=== PATIENT | female | born 1965 | race Caucasian/White ===

== ENCOUNTER → 2017-12-14 | Outpatient (CLI) | payer MEDICARE, BC | END | disposition home or self-care (01) | LOC: RAD 10:58 | DX: S93.601A Unspecified sprain of right foot, initial encounter (principal) | CPT/HCPCS: 73630 ==

== ENCOUNTER 2018-03-29 16:39 | Inpatient (IN) | payer MEDICARE, BC ==
[2018-03-29] MEDS: SOD CHLORIDE 0.9% 1,000 ML IV ×2 (17:29→22:51)
[2018-03-29 17:32] LABS: ADD MAN DIFF? NO
[2018-03-29 17:39] LABS: BASOPHILS % 0.1 % (0.0-2.0); EOSINOPHILS % 0.1 % (0.0-7.0); HEMATOCRIT 29.1 % (37.0-47.0); HEMOGLOBIN 9.6 g/dl (12.0-16.0); LYMPHOCYTES # 1.3 10^3/ul (0.8-2.9); MEAN CORPUSCULAR HEMOGLOBIN 29.4 pg (29.0-33.0); MEAN CORPUSCULAR VOLUME 89.3 fl (82.0-101.0); MEAN PLATELET VOLUME 11.3 fl (7.4-10.4); MONOCYTE # 1.4 10^3/ul (0.3-0.9); NEUTROPHIL # 11.2 10^3/ul (1.6-7.5); NEUTROPHILS % 79.9 % (39.0-77.0); PLATELET COUNT 177 10^3/UL (140-415); RED BLOOD COUNT 3.26 10^6/ul (4.20-5.40); RED CELL DISTRIBUTION WIDTH 15.3 % (11.5-14.5)
[2018-03-29] MEDS: SODIUM CHLORIDE 0.9% 1L BAG IV* (17:56)
[2018-03-29 17:59] LABS: INR 0.96; PROTIME 12.9 Sec (11.9-14.9)
[2018-03-29 18:05] LABS: ALANINE AMINOTRANSFERASE 30 IU/L (13-69); ALBUMIN 3.5 g/dl (3.3-4.9); ALBUMIN/GLOBULIN RATIO 0.89; ALKALINE PHOSPHATASE 86 IU/L (42-121); ANION GAP 18 (8-16); ASPARTATE AMINO TRANSFERASE 20 IU/L (15-46); BILIRUBIN,INDIRECT 0.1 mg/dl (0-1.1); BILIRUBIN,TOTAL 0.1 mg/dl (0.2-1.3); BLOOD UREA NITROGEN 41 mg/dl (7-20); CALCIUM 9.1 mg/dl (8.4-10.2); CARBON DIOXIDE 23 mmol/L (21-31); CHLORIDE 97 mmol/L (97-110); CREATININE 1.88 mg/dl (0.44-1.00); GLUCOSE 284 mg/dl (70-220); POTASSIUM 4.5 mmol/L (3.5-5.1); SODIUM 133 mmol/L (135-144); TOTAL PROTEIN 7.4 g/dl (6.1-8.1)
[2018-03-29 18:06] LABS: LACTIC ACID 2.3 mmol/L (0.5-2.0)
[2018-03-29 18:16] LABS: B-TYPE NATRIURETIC PEPTIDE 504 PG/ML (0-125); TROPONIN-I < 0.012 ng/ml (0.000-0.120)
[2018-03-29] MEDS: CEFTRIAXONE 1 GM/50 ML (PMX) 50 ML IVPB (18:18)
[2018-03-29 19:01] LABS: LACTIC ACID 2.4 mmol/L (0.5-2.0)
[2018-03-29] MEDS ORDERED: ACETAMINOPHEN 325 MG TAB PO (20:00)
[2018-03-29] MEDS ORDERED: ONDANSETRON 4 MG INJ IV (20:00)
[2018-03-29 20:08] LABS: ADD UMIC YES; UR ASCORBIC ACID NEGATIVE (NEGATIVE); UR BACTERIA FEW /HPF (NONE SEEN); UR BILIRUBIN (Dip) NEGATIVE (NEGATIVE); UR BLOOD (Dip) NEGATIVE (NEGATIVE); UR CLARITY CLEAR (CLEAR); UR COLOR YELLOW (YELLOW); UR GLUCOSE (Dip) NEGATIVE (NEGATIVE); UR KETONES (Dip) TRACE mg/dL (NEGATIVE); UR LEUKOCYTE ESTERASE (Dip) TRACE Leu/ul (NEGATIVE); UR NITRITE (Dip) NEGATIVE (NEGATIVE); UR RBC 1 /HPF (0-5); UR SPECIFIC GRAVITY (Dip) 1.011 (1.003-1.030); UR TOTAL PROTEIN (Dip) NEGATIVE (NEGATIVE); UR UROBILINOGEN (Dip) NEGATIVE (NEGATIVE); UR WBC 9 /HPF (0-5)
[2018-03-29 21:07] LABS: LACTIC ACID 1.4 mmol/L (0.5-2.0)
[2018-03-29] MEDS ORDERED: NON-FORMULARY/PATIENT OWN MED (Omeprazole* 20 MG) PO (22:30)
[2018-03-29] MEDS: INSULIN ASPART [NOVOLOG] 3 ML PEN SC (22:50)
[2018-03-29] MEDS ORDERED: GLUCOSE GEL 15 GRAM TUBE BUCCAL (23:00)
[2018-03-29] MEDS ORDERED: GLUCOSE GEL 15 GRAM TUBE PO ×2 (23:00)
[2018-03-29] MEDS ORDERED: DEXTROSE 50% 50 ML SYRINGE IV ×2 (23:00)
[2018-03-29] MEDS ORDERED: GLUCAGON 1 MG INJ IM (23:00)
[2018-03-30] MEDS: ACCU-CHEK XX (02:00)
[2018-03-30 05:43] LABS: ADD MAN DIFF? NO
[2018-03-30] MEDS: PANTOPRAZOLE (EC) 40 MG TAB PO (05:44)
[2018-03-30 05:54] LABS: BASOPHILS % 0.2 % (0.0-2.0); EOSINOPHILS # 0.1 10^3/ul (0.0-0.5); EOSINOPHILS % 0.5 % (0.0-7.0); HEMATOCRIT 27.2 % (37.0-47.0); HEMOGLOBIN 8.8 g/dl (12.0-16.0); LYMPHOCYTES # 1.2 10^3/ul (0.8-2.9); LYMPHOCYTES % 12.5 % (15.0-51.0); MEAN CORPUSCULAR HEMOGLOBIN 29.2 pg (29.0-33.0); MEAN CORPUSCULAR HGB CONC 32.4 g/dl (32.0-37.0); MEAN CORPUSCULAR VOLUME 90.4 fl (82.0-101.0); MEAN PLATELET VOLUME 10.9 fl (7.4-10.4); MONOCYTE # 1.3 10^3/ul (0.3-0.9); MONOCYTES % 12.9 % (0.0-11.0); NEUTROPHIL # 7.1 10^3/ul (1.6-7.5); PLATELET COUNT 168 10^3/UL (140-415); RED BLOOD COUNT 3.01 10^6/ul (4.20-5.40); RED CELL DISTRIBUTION WIDTH 15.8 % (11.5-14.5)
[2018-03-30 05:54] LABS: WHITE BLOOD COUNT 9.7 10^3/ul (4.8-10.8)
[2018-03-30 06:28] LABS: ANION GAP 12 (8-16); BLOOD UREA NITROGEN 38 mg/dl (7-20); CALCIUM 8.7 mg/dl (8.4-10.2); CARBON DIOXIDE 26 mmol/L (21-31); CHLORIDE 108 mmol/L (97-110); CREATININE 1.66 mg/dl (0.44-1.00); GLUCOSE 161 mg/dl (70-220); POTASSIUM 4.5 mmol/L (3.5-5.1); SODIUM 141 mmol/L (135-144)
[2018-03-30] MEDS ORDERED: INSULIN ASPART [NOVOLOG] 3 ML PEN SC (08:00)
[2018-03-30] MEDS: LINAGLIPTIN 5 MG TABLET PO (08:07)
[2018-03-30] MEDS: INSULIN ASPART [NOVOLOG] 3 ML PEN SC ×7 (08:08→21:00)
[2018-03-30] MEDS: HYDROCHLOROTHIAZIDE 12.5 MG CAP PO (08:47)
[2018-03-30] MEDS: MELOXICAM 15 MG TAB PO (08:47)
[2018-03-30] MEDS: PREGABALIN 75 MG CAP PO ×2 (08:47→21:00)
[2018-03-30] MEDS: BUPROPION (XL) 150 MG TAB PO (08:48)
[2018-03-30] MEDS: ACETAMINOPHEN 325 MG TAB PO (08:48)
[2018-03-30] MEDS: ENOXAPARIN 30 MG/0.3 ML SYG SC (08:51)
[2018-03-30] MEDS ORDERED: NON-FORMULARY/PATIENT OWN MED (Linagliptin (Tradjenta) 5 MG) PO (09:00)
[2018-03-30] MEDS: SOD CHLORIDE 0.9% 1,000 ML IV (12:35)
[2018-03-30] MEDS: CEFTRIAXONE 1 GM/50 ML (PMX) 50 ML IVPB (18:09)
[2018-03-30 18:10] LABS: TROPONIN-I < 0.012 ng/ml (0.000-0.120)
[2018-03-30] MEDS: DIVALPROEX (EC) 500 MG TAB PO (21:00)
[2018-03-30] MEDS ORDERED: DIVALPROEX SODIUM 1000 MG PO (21:00)
[2018-03-30] MEDS: INSULIN DETEMIR [LEVEMIR] (100 UNITS/ML) SYG SC (21:36)
[2018-03-31] MEDS: ACCU-CHEK XX (01:04)
[2018-03-31] MEDS: SOD CHLORIDE 0.9% 1,000 ML IV ×2 (01:04→18:00)
[2018-03-31 01:39] LABS: TROPONIN-I < 0.012 ng/ml (0.000-0.120)
[2018-03-31 06:15] LABS: ADD MAN DIFF? NO
[2018-03-31 06:23] LABS: WHITE BLOOD COUNT 6.8 10^3/ul (4.8-10.8)
[2018-03-31 06:23] LABS: BASOPHILS % 0.4 % (0.0-2.0); EOSINOPHILS % 0.6 % (0.0-7.0); HEMOGLOBIN 8.8 g/dl (12.0-16.0); LYMPHOCYTES # 1.4 10^3/ul (0.8-2.9); LYMPHOCYTES % 20.7 % (15.0-51.0); MEAN CORPUSCULAR HEMOGLOBIN 28.9 pg (29.0-33.0); MEAN CORPUSCULAR HGB CONC 32.6 g/dl (32.0-37.0); MEAN CORPUSCULAR VOLUME 88.5 fl (82.0-101.0); MEAN PLATELET VOLUME 10.8 fl (7.4-10.4); MONOCYTE # 0.8 10^3/ul (0.3-0.9); MONOCYTES % 12.2 % (0.0-11.0); NEUTROPHIL # 4.3 10^3/ul (1.6-7.5); NEUTROPHILS % 63.2 % (39.0-77.0); PLATELET COUNT 190 10^3/UL (140-415); RED BLOOD COUNT 3.05 10^6/ul (4.20-5.40); RED CELL DISTRIBUTION WIDTH 16.1 % (11.5-14.5)
[2018-03-31 06:41] LABS: HEMOGLOBIN A1C 9.5 % (0-5.9)
[2018-03-31 06:45] LABS: ANION GAP 14 (8-16); BLOOD UREA NITROGEN 28 mg/dl (7-20); CALCIUM 8.7 mg/dl (8.4-10.2); CARBON DIOXIDE 26 mmol/L (21-31); CHLORIDE 107 mmol/L (97-110); CREATININE 1.36 mg/dl (0.44-1.00); GLUCOSE 216 mg/dl (70-220); POTASSIUM 3.9 mmol/L (3.5-5.1); SODIUM 143 mmol/L (135-144)
[2018-03-31] MEDS: PANTOPRAZOLE (EC) 40 MG TAB PO (06:47)
[2018-03-31 06:51] LABS: TROPONIN-I < 0.012 ng/ml (0.000-0.120)
[2018-03-31] MEDS: INSULIN ASPART [NOVOLOG] 3 ML PEN SC ×7 (07:56→21:02)
[2018-03-31] MEDS: HYDROCHLOROTHIAZIDE 12.5 MG CAP PO (08:43)
[2018-03-31] MEDS: BUPROPION (XL) 150 MG TAB PO (08:43)
[2018-03-31] MEDS: PREGABALIN 75 MG CAP PO ×2 (08:43→21:08)
[2018-03-31] MEDS: MELOXICAM 15 MG TAB PO (08:43)
[2018-03-31] MEDS: LINAGLIPTIN 5 MG TABLET PO (08:43)
[2018-03-31] MEDS: ENOXAPARIN 30 MG/0.3 ML SYG SC (08:47)
[2018-03-31] MEDS: CEFTRIAXONE 1 GM/50 ML (PMX) 50 ML IVPB (18:00)
[2018-03-31] MEDS: DIVALPROEX (EC) 500 MG TAB PO (20:57)
[2018-03-31] MEDS: INSULIN DETEMIR [LEVEMIR] (100 UNITS/ML) SYG SC (21:02)
[2018-04-01] MEDS: hydrALAzine 20 MG INJ IV (00:21)
[2018-04-01] MEDS: ACCU-CHEK XX (02:00)
[2018-04-01] MEDS: PANTOPRAZOLE (EC) 40 MG TAB PO (06:00)
[2018-04-01] MEDS: SOD CHLORIDE 0.9% 1,000 ML IV ×3 (06:01→22:47)
[2018-04-01] MEDS: INSULIN ASPART [NOVOLOG] 3 ML PEN SC ×8 (07:58→21:28)
[2018-04-01] MEDS: BUPROPION (XL) 150 MG TAB PO (08:50)
[2018-04-01] MEDS: PREGABALIN 75 MG CAP PO ×2 (08:50→21:23)
[2018-04-01] MEDS: MELOXICAM 15 MG TAB PO (08:50)
[2018-04-01] MEDS: HYDROCHLOROTHIAZIDE 12.5 MG CAP PO (08:50)
[2018-04-01] MEDS: LINAGLIPTIN 5 MG TABLET PO (08:51)
[2018-04-01] MEDS: ENOXAPARIN 30 MG/0.3 ML SYG SC (09:01)
[2018-04-01] MEDS: CEFTRIAXONE 1 GM/50 ML (PMX) 50 ML IVPB (18:23)
[2018-04-01] MEDS: DIVALPROEX (EC) 500 MG TAB PO (21:23)
[2018-04-01] MEDS: INSULIN DETEMIR [LEVEMIR] (100 UNITS/ML) SYG SC (21:28)
[2018-04-02] MEDS: ACCU-CHEK XX (01:56)
[2018-04-02] MEDS: PANTOPRAZOLE (EC) 40 MG TAB PO (05:23)
[2018-04-02] MEDS: INSULIN ASPART [NOVOLOG] 3 ML PEN SC ×7 (08:03→20:21)
[2018-04-02] MEDS: HYDROCHLOROTHIAZIDE 12.5 MG CAP PO (08:37)
[2018-04-02] MEDS: LINAGLIPTIN 5 MG TABLET PO (08:37)
[2018-04-02] MEDS: BUPROPION (XL) 150 MG TAB PO (08:37)
[2018-04-02] MEDS: PREGABALIN 75 MG CAP PO ×2 (08:37→20:16)
[2018-04-02] MEDS: MELOXICAM 15 MG TAB PO (08:37)
[2018-04-02] MEDS: ENOXAPARIN 30 MG/0.3 ML SYG SC (08:55)
[2018-04-02] MEDS: ACETAMINOPHEN 325 MG TAB PO (11:39)
[2018-04-02 15:42] LABS: ABNORMAL IP MESSAGE 1; HEMATOCRIT 28.7 % (37.0-47.0); HEMOGLOBIN 9.3 g/dl (12.0-16.0); MEAN CORPUSCULAR HEMOGLOBIN 29.3 pg (29.0-33.0); MEAN CORPUSCULAR HGB CONC 32.4 g/dl (32.0-37.0); MEAN CORPUSCULAR VOLUME 90.5 fl (82.0-101.0); MEAN PLATELET VOLUME 10.2 fl (7.4-10.4); NUCLEATED RED BLOOD CELLS% 0.3 /100WBC (0.0-0.0); PLATELET COUNT 231 10^3/UL (140-415); RED BLOOD COUNT 3.17 10^6/ul (4.20-5.40); RED CELL DISTRIBUTION WIDTH 16.3 % (11.5-14.5)
[2018-04-02 15:42] LABS: WHITE BLOOD COUNT 6.2 10^3/ul (4.8-10.8)
[2018-04-02 15:59] LABS: POSITIVE DIFF @See below
[2018-04-02 16:00] LABS: ADD MAN DIFF? YES; ALANINE AMINOTRANSFERASE 25 IU/L (13-69); ALBUMIN/GLOBULIN RATIO 0.75; ALKALINE PHOSPHATASE 73 IU/L (42-121); ANION GAP 15 (8-16); ASPARTATE AMINO TRANSFERASE 28 IU/L (15-46); BLOOD UREA NITROGEN 24 mg/dl (7-20); CALCIUM 8.8 mg/dl (8.4-10.2); CARBON DIOXIDE 24 mmol/L (21-31); CHLORIDE 110 mmol/L (97-110); CREATININE 1.35 mg/dl (0.44-1.00); GLUCOSE 101 mg/dl (70-220); POTASSIUM 4.2 mmol/L (3.5-5.1); SODIUM 145 mmol/L (135-144)
[2018-04-02 17:05] LABS: ANISOCYTOSIS 1+ (0-0); BAND NEUTROPHILS #M 0.5 10^3/ul (0.0-0.6); BAND NEUTROPHILS % (M) 9 % (0-4); EOSINOPHILS % (M) 1 % (0-7); ERYTHROBLAST% (NRBC) (M) 1 % (0-0); LYMPHOCYTES % (M) 33 % (15-51); METAMYELOCYTES %M 1 % (0-0); MONOCYTE #M 0.4 10^3/ul (0.3-0.9); MONOCYTES % (M) 8 % (0-11); MYELOCYTES #M 0.5 10^3/ul (0.0-0.0); MYELOCYTES % (M) 9 % (0-0); PLATELET ESTIMATE NORMAL; PROMYELOCYTES #M 0.1 10^3/ul (0-0); PROMYELOCYTES % (M) 2 % (0-0); SEG NEUT #M 2.3 10^3/ul (1.6-7.5); SEGMENTED NEUTROPHILS (M) % 36 % (39-77); SMUDGE%M 7 % (0-0)
[2018-04-02] MEDS: CEFTRIAXONE 1 GM/50 ML (PMX) 50 ML IVPB (17:18)
[2018-04-02] MEDS: SOD CHLORIDE 0.9% 1,000 ML IV (19:50)
[2018-04-02] MEDS: DIVALPROEX (EC) 500 MG TAB PO (20:16)
[2018-04-02] MEDS: INSULIN DETEMIR [LEVEMIR] (100 UNITS/ML) SYG SC (20:26)
[2018-04-03] MEDS: SOD CHLORIDE 0.9% 1,000 ML IV (01:54)
[2018-04-03] MEDS: ACCU-CHEK XX (01:55)
[2018-04-03 05:22] LABS: ABNORMAL IP MESSAGE 1; HEMATOCRIT 27.1 % (37.0-47.0); HEMOGLOBIN 8.7 g/dl (12.0-16.0); MEAN CORPUSCULAR HEMOGLOBIN 29.1 pg (29.0-33.0); MEAN CORPUSCULAR HGB CONC 32.1 g/dl (32.0-37.0); MEAN CORPUSCULAR VOLUME 90.6 fl (82.0-101.0); NUCLEATED RED BLOOD CELLS% 0.3 /100WBC (0.0-0.0); PLATELET COUNT 237 10^3/UL (140-415); RED BLOOD COUNT 2.99 10^6/ul (4.20-5.40); RED CELL DISTRIBUTION WIDTH 16.3 % (11.5-14.5)
[2018-04-03 05:22] LABS: WHITE BLOOD COUNT 6.5 10^3/ul (4.8-10.8)
[2018-04-03 05:33] LABS: ADD MAN DIFF? YES; POSITIVE DIFF @See below
[2018-04-03] MEDS: PANTOPRAZOLE (EC) 40 MG TAB PO (05:33)
[2018-04-03 06:16] LABS: ANION GAP 12 (8-16); BLOOD UREA NITROGEN 24 mg/dl (7-20); CALCIUM 8.6 mg/dl (8.4-10.2); CARBON DIOXIDE 25 mmol/L (21-31); CHLORIDE 110 mmol/L (97-110); CREATININE 1.29 mg/dl (0.44-1.00); GLUCOSE 223 mg/dl (70-220); POTASSIUM 3.9 mmol/L (3.5-5.1); SODIUM 143 mmol/L (135-144)
[2018-04-03] MEDS: INSULIN ASPART [NOVOLOG] 3 ML PEN SC ×4 (08:06→12:14)
[2018-04-03 08:11] LABS: BAND NEUTROPHILS #M 0.2 10^3/ul (0.0-0.6); BAND NEUTROPHILS % (M) 4 % (0-4); BASOPHILS % (M) 1 % (0-2); ERYTHROBLAST% (NRBC) (M) 1 % (0-0); GIANT THROMBO% (M) 1 % (0-0); HYPOCHROMASIA 2+ (0-0); LYMPHOCYTES #M 2.2 10^3/ul (0.8-2.9); LYMPHOCYTES % (M) 35 % (15-51); METAMYELOCYTES %M 1 % (0-0); MONOCYTE #M 0.3 10^3/ul (0.3-0.9); MONOCYTES % (M) 5 % (0-11); MYELOCYTES #M 0.2 10^3/ul (0.0-0.0); MYELOCYTES % (M) 4 % (0-0); OVALOCYTES 1+ (0-0); PLATELET ESTIMATE NORMAL; SEG NEUT #M 3.3 10^3/ul (1.6-7.5); SEGMENTED NEUTROPHILS (M) % 50 % (39-77); SMUDGE%M 5 % (0-0)
[2018-04-03] MEDS: BUPROPION (XL) 150 MG TAB PO (08:58)
[2018-04-03] MEDS: LINAGLIPTIN 5 MG TABLET PO (08:58)
[2018-04-03] MEDS: MELOXICAM 15 MG TAB PO (08:58)
[2018-04-03] MEDS: PREGABALIN 75 MG CAP PO (08:58)
[2018-04-03] MEDS: HYDROCHLOROTHIAZIDE 12.5 MG CAP PO (08:59)
[2018-04-03] MEDS: ENOXAPARIN 30 MG/0.3 ML SYG SC (09:00)
== END 2018-04-03 13:45 | disposition home or self-care (01) | DRG 872 ==
LOC: 6WM 20:55 → E/R 16:39 → PP2 19:32
DX: A41.9 Sepsis, unspecified organism (principal); N39.0 Urinary tract infection, site not specified; E87.1 Hypo-osmolality and hyponatremia; N17.9 Acute kidney failure, unspecified; E87.2 Acidosis; M86.672 Other chronic osteomyelitis, left ankle and foot; E11.22 Type 2 diabetes mellitus with diabetic chronic kidney disease; E11.621 Type 2 diabetes mellitus with foot ulcer; E11.65 Type 2 diabetes mellitus with hyperglycemia; R55 Syncope and collapse; E86.0 Dehydration; E78.5 Hyperlipidemia, unspecified; F31.9 Bipolar disorder, unspecified; I12.9 Hypertensive chronic kidney disease with stage 1 through stage 4 chronic kidney disease, or unspecified chronic kidney disease; N18.9 Chronic kidney disease, unspecified; D63.8 Anemia in other chronic diseases classified elsewhere; B96.20 Unspecified Escherichia coli [E. coli] as the cause of diseases classified elsewhere; E66.9 Obesity, unspecified; Z68.33 Body mass index [BMI] 33.0-33.9, adult; Z79.4 Long term (current) use of insulin; Z79.84 Long term (current) use of oral hypoglycemic drugs; Z87.891 Personal history of nicotine dependence
CPT/HCPCS: 36415; 71045; 80048; 80053; 81001; 82962; 83036; 83605; 83880; 84484; 85025; 85610; 87040; 87086; 87400; 93005; 93306; 96361; 96374; 99285-25

== ENCOUNTER 2018-09-10 12:18 | Inpatient (IN) | payer MEDICARE, BC ==
[2018-09-10 13:27] LABS: ADD MAN DIFF? NO
[2018-09-10 13:33] LABS: BASOPHILS % 0.4 % (0.0-2.0); EOSINOPHILS # 0.1 10^3/ul (0.0-0.5); EOSINOPHILS % 1.2 % (0.0-7.0); HEMATOCRIT 31.9 % (37.0-47.0); HEMOGLOBIN 9.7 g/dl (12.0-16.0); LYMPHOCYTES % 23.1 % (15.0-51.0); MEAN CORPUSCULAR HGB CONC 30.4 g/dl (32.0-37.0); MEAN CORPUSCULAR VOLUME 91.9 fl (82.0-101.0); MEAN PLATELET VOLUME 10.8 fl (7.4-10.4); MONOCYTE # 0.8 10^3/ul (0.3-0.9); MONOCYTES % 9.3 % (0.0-11.0); NEUTROPHIL # 5.5 10^3/ul (1.6-7.5); NEUTROPHILS % 65.1 % (39.0-77.0); PLATELET COUNT 205 10^3/UL (140-415); RED BLOOD COUNT 3.47 10^6/ul (4.20-5.40); RED CELL DISTRIBUTION WIDTH 15.2 % (11.5-14.5)
[2018-09-10 13:33] LABS: WHITE BLOOD COUNT 8.5 10^3/ul (4.8-10.8)
[2018-09-10 13:50] LABS: ALBUMIN/GLOBULIN RATIO 1.02; ALKALINE PHOSPHATASE 51 IU/L (42-121); ANION GAP 14 (5-13); ASPARTATE AMINO TRANSFERASE 25 IU/L (15-46); BILIRUBIN,INDIRECT 0.1 mg/dl (0-1.1); BILIRUBIN,TOTAL 0.1 mg/dl (0.2-1.3); BLOOD UREA NITROGEN 17 mg/dl (7-20); CALCIUM 9.1 mg/dl (8.4-10.2); CARBON DIOXIDE 19 mmol/L (21-31); CHLORIDE 108 mmol/L (97-110); CREATININE 1.14 mg/dl (0.44-1.00); Estimated GFR 50 mL/min (>60); GLUCOSE 234 mg/dl (70-220); POTASSIUM 5.1 mmol/L (3.5-5.1); SODIUM 141 mmol/L (135-144); TOTAL PROTEIN 7.9 g/dl (6.1-8.1)
[2018-09-10 13:52] LABS: PROTIME 12.3 Sec (11.9-14.9)
[2018-09-10 13:53] LABS: ALANINE AMINOTRANSFERASE < 6 IU/L (13-69); PARTIAL THROMBOPLASTIN TIME 28.6 Sec (23.0-35.0)
[2018-09-10 14:01] LABS: TROPONIN-I < 0.012 ng/ml (0.000-0.120)
[2018-09-10] MEDS: CLINDAMYCIN 900 MG/D5W (PMX) 50 ML IVPB (14:55)
[2018-09-10] MEDS: PIPER-TAZO 3.375 GM IV (PMX) 100 ML IVPB ×3 (14:56→23:53)
[2018-09-10] MEDS ORDERED: ACETAMINOPHEN 325 MG TAB PO ×2 (15:00→16:30)
[2018-09-10] MEDS ORDERED: ONDANSETRON 4 MG INJ IV (15:00)
[2018-09-10] MEDS: VANCOMYCIN 1 GM (PMX) 250 ML IVPB (15:30)
[2018-09-10] MEDS ORDERED: NAPROXEN 500 MG TAB PO (16:30)
[2018-09-10] MEDS ORDERED: GLUCOSE GEL 15 GRAM TUBE PO ×2 (17:00)
[2018-09-10] MEDS ORDERED: GLUCAGON 1 MG INJ IM (17:00)
[2018-09-10] MEDS ORDERED: DEXTROSE 50% 50 ML SYRINGE IV (17:00)
[2018-09-10] MEDS ORDERED: VANCOMYCIN IV PER PHARMACY XX (17:00)
[2018-09-10] MEDS ORDERED: GLUCOSE GEL 15 GRAM TUBE BUCCAL (17:00)
[2018-09-10] MEDS: SOD CHLORIDE 0.45% 1,000 ML IV (17:51)
[2018-09-10] MEDS: metFORMIN 500 MG TAB PO (18:52)
[2018-09-10] MEDS: VANCOMYCIN 750 MG (PMX) 250 ML IVPB (18:53)
[2018-09-10] MEDS: INSULIN ASPART [NOVOLOG] 3 ML PEN SC ×3 (18:55→22:10)
[2018-09-10] MEDS: DOCUSATE SODIUM 100 MG CAP PO (20:45)
[2018-09-10] MEDS: DIVALPROEX (EC) 500 MG TAB PO (20:45)
[2018-09-10] MEDS: PREGABALIN 75 MG CAP PO (20:45)
[2018-09-10] MEDS: INSULIN GLARGINE [LANTus] (100 UNITS/ML) SYG SC (22:11)
[2018-09-11] MEDS: INSULIN ASPART [NOVOLOG] 3 ML PEN SC ×9 (01:19→21:00)
[2018-09-11 05:02] LABS: ADD MAN DIFF? NO
[2018-09-11 05:07] LABS: BASOPHILS % 0.3 % (0.0-2.0); EOSINOPHILS # 0.1 10^3/ul (0.0-0.5); EOSINOPHILS % 2.4 % (0.0-7.0); HEMATOCRIT 29.4 % (37.0-47.0); HEMOGLOBIN 9.3 g/dl (12.0-16.0); LYMPHOCYTES # 1.7 10^3/ul (0.8-2.9); LYMPHOCYTES % 28.5 % (15.0-51.0); MEAN CORPUSCULAR HEMOGLOBIN 28.1 pg (29.0-33.0); MEAN CORPUSCULAR HGB CONC 31.6 g/dl (32.0-37.0); MEAN CORPUSCULAR VOLUME 88.8 fl (82.0-101.0); MEAN PLATELET VOLUME 10.6 fl (7.4-10.4); MONOCYTE # 0.6 10^3/ul (0.3-0.9); NEUTROPHIL # 3.3 10^3/ul (1.6-7.5); NEUTROPHILS % 57.9 % (39.0-77.0); PLATELET COUNT 183 10^3/UL (140-415); RED BLOOD COUNT 3.31 10^6/ul (4.20-5.40); RED CELL DISTRIBUTION WIDTH 15.2 % (11.5-14.5)
[2018-09-11 05:07] LABS: WHITE BLOOD COUNT 5.8 10^3/ul (4.8-10.8)
[2018-09-11 05:20] LABS: HEMOGLOBIN A1C 10.3 % (0-5.9)
[2018-09-11 05:36] LABS: ANION GAP 11 (5-13); BLOOD UREA NITROGEN 16 mg/dl (7-20); CALCIUM 8.9 mg/dl (8.4-10.2); CARBON DIOXIDE 22 mmol/L (21-31); CHLORIDE 109 mmol/L (97-110); CREATININE 1.14 mg/dl (0.44-1.00); Estimated GFR 50 mL/min (>60); GLUCOSE 140 mg/dl (70-220); POTASSIUM 4.2 mmol/L (3.5-5.1); SODIUM 142 mmol/L (135-144)
[2018-09-11] MEDS: PIPER-TAZO 3.375 GM IV (PMX) 100 ML IVPB ×2 (05:58→12:28)
[2018-09-11] MEDS: PREGABALIN 75 MG CAP PO ×2 (08:30→21:35)
[2018-09-11] MEDS: metFORMIN 500 MG TAB PO ×2 (08:30→17:45)
[2018-09-11] MEDS: LINAGLIPTIN 5 MG TABLET PO (08:32)
[2018-09-11] MEDS: HYDROCHLOROTHIAZIDE 12.5 MG CAP PO (08:33)
[2018-09-11] MEDS: PANTOPRAZOLE (EC) 40 MG TAB PO (08:33)
[2018-09-11] MEDS: BUPROPION (XL) 150 MG TAB PO (08:33)
[2018-09-11] MEDS: DOCUSATE SODIUM 100 MG CAP PO ×2 (08:33→21:00)
[2018-09-11] MEDS ORDERED: BUPROPION (XL) 150 MG TAB PO (09:00)
[2018-09-11] MEDS: MELOXICAM 15 MG TAB PO (10:54)
[2018-09-11] MEDS: SOD CHLORIDE 0.45% 1,000 ML IV (12:23)
[2018-09-11] MEDS: VANCOMYCIN 750 MG (PMX) 250 ML IVPB (13:20)
[2018-09-11] MEDS ORDERED: DAPTOMYCIN 500 MG in SOD CHLORIDE 0.9% 100 ML IVPB (14:30)
[2018-09-11] MEDS: FLUTICASONE 0.05% 16 GM NAS SPRAY NASAL ×2 (14:38→22:04)
[2018-09-11] MEDS: ENOXAPARIN 30 MG/0.3 ML SYG SC (14:57)
[2018-09-11] MEDS: DAPTOMYCIN 500 MG in SOD CHLORIDE 0.9% 100 ML IVPB (18:17)
[2018-09-11] MEDS: INSULIN GLARGINE [LANTus] (100 UNITS/ML) SYG SC (20:00)
[2018-09-11] MEDS: DIVALPROEX (EC) 500 MG TAB PO (21:34)
[2018-09-11] MEDS: LOPERAMIDE 2 MG CAP PO (22:42)
[2018-09-11] MEDS: CEFEPIME 1GM/50 ML (PMX) 50 ML IVPB (22:42)
[2018-09-12] MEDS: INSULIN GLARGINE [LANTus] (100 UNITS/ML) SYG SC ×2 (00:44→20:44)
[2018-09-12] MEDS: SOD CHLORIDE 0.45% 1,000 ML IV (05:58)
[2018-09-12] MEDS: LOPERAMIDE 2 MG CAP PO ×2 (06:52→20:35)
[2018-09-12 08:05] LABS: ANION GAP 11 (5-13); BLOOD UREA NITROGEN 18 mg/dl (7-20); CALCIUM 9.3 mg/dl (8.4-10.2); CARBON DIOXIDE 24 mmol/L (21-31); CHLORIDE 108 mmol/L (97-110); CREATININE 1.15 mg/dl (0.44-1.00); Estimated GFR 49 mL/min (>60); GLUCOSE 161 mg/dl (70-220); POTASSIUM 4.5 mmol/L (3.5-5.1); SODIUM 143 mmol/L (135-144)
[2018-09-12] MEDS: INSULIN ASPART [NOVOLOG] 3 ML PEN SC ×7 (08:33→20:46)
[2018-09-12] MEDS: ENOXAPARIN 30 MG/0.3 ML SYG SC (08:35)
[2018-09-12] MEDS: LINAGLIPTIN 5 MG TABLET PO (08:35)
[2018-09-12] MEDS: BUPROPION (XL) 150 MG TAB PO (08:35)
[2018-09-12] MEDS: MELOXICAM 15 MG TAB PO (08:35)
[2018-09-12] MEDS: DOCUSATE SODIUM 100 MG CAP PO ×2 (08:42→20:46)
[2018-09-12] MEDS: metFORMIN 500 MG TAB PO ×2 (08:42→17:21)
[2018-09-12] MEDS: PANTOPRAZOLE (EC) 40 MG TAB PO (08:42)
[2018-09-12] MEDS: PREGABALIN 75 MG CAP PO ×2 (08:42→20:35)
[2018-09-12] MEDS: HYDROCHLOROTHIAZIDE 12.5 MG CAP PO (08:42)
[2018-09-12] MEDS: CEFEPIME 1GM/50 ML (PMX) 50 ML IVPB ×2 (08:43→20:34)
[2018-09-12] MEDS: FLUTICASONE 0.05% 16 GM NAS SPRAY NASAL ×3 (08:43→20:48)
[2018-09-12] MEDS: DAPTOMYCIN 500 MG in SOD CHLORIDE 0.9% 100 ML IVPB (17:25)
[2018-09-12] MEDS: DIVALPROEX (EC) 500 MG TAB PO (20:35)
[2018-09-13] MEDS: SOD CHLORIDE 0.45% 1,000 ML IV ×2 (03:46→11:59)
[2018-09-13 06:24] LABS: ADD MAN DIFF? NO
[2018-09-13 06:26] LABS: WHITE BLOOD COUNT 4.4 10^3/ul (4.8-10.8)
[2018-09-13 06:26] LABS: BASOPHILS % 0.5 % (0.0-2.0); EOSINOPHILS # 0.1 10^3/ul (0.0-0.5); EOSINOPHILS % 1.8 % (0.0-7.0); HEMATOCRIT 30.6 % (37.0-47.0); HEMOGLOBIN 9.7 g/dl (12.0-16.0); LYMPHOCYTES # 1.3 10^3/ul (0.8-2.9); LYMPHOCYTES % 30.7 % (15.0-51.0); MEAN CORPUSCULAR HEMOGLOBIN 28.6 pg (29.0-33.0); MEAN CORPUSCULAR HGB CONC 31.7 g/dl (32.0-37.0); MEAN CORPUSCULAR VOLUME 90.3 fl (82.0-101.0); MEAN PLATELET VOLUME 10.4 fl (7.4-10.4); MONOCYTE # 0.5 10^3/ul (0.3-0.9); MONOCYTES % 10.5 % (0.0-11.0); NEUTROPHIL # 2.4 10^3/ul (1.6-7.5); NEUTROPHILS % 54.7 % (39.0-77.0); PLATELET COUNT 218 10^3/UL (140-415); RED BLOOD COUNT 3.39 10^6/ul (4.20-5.40); RED CELL DISTRIBUTION WIDTH 14.8 % (11.5-14.5)
[2018-09-13 06:46] LABS: CREATINE KINASE 43 IU/L (23-200)
[2018-09-13 07:05] LABS: ANION GAP 12 (5-13); BLOOD UREA NITROGEN 18 mg/dl (7-20); CALCIUM 8.9 mg/dl (8.4-10.2); CARBON DIOXIDE 23 mmol/L (21-31); CHLORIDE 108 mmol/L (97-110); CREATININE 1.22 mg/dl (0.44-1.00); Estimated GFR 46 mL/min (>60); GLUCOSE 163 mg/dl (70-220); POTASSIUM 4.4 mmol/L (3.5-5.1); SODIUM 143 mmol/L (135-144)
[2018-09-13] MEDS: ENOXAPARIN 30 MG/0.3 ML SYG SC (08:27)
[2018-09-13] MEDS: CEFEPIME 1GM/50 ML (PMX) 50 ML IVPB ×2 (08:27→20:38)
[2018-09-13] MEDS: INSULIN ASPART [NOVOLOG] 3 ML PEN SC ×7 (08:28→20:38)
[2018-09-13] MEDS: BUPROPION (XL) 150 MG TAB PO (08:35)
[2018-09-13] MEDS: MELOXICAM 15 MG TAB PO (08:35)
[2018-09-13] MEDS: FLUTICASONE 0.05% 16 GM NAS SPRAY NASAL ×3 (08:35→20:46)
[2018-09-13] MEDS: metFORMIN 500 MG TAB PO ×2 (08:35→17:19)
[2018-09-13] MEDS: DOCUSATE SODIUM 100 MG CAP PO ×3 (08:35→20:47)
[2018-09-13] MEDS: LINAGLIPTIN 5 MG TABLET PO (08:36)
[2018-09-13] MEDS: PREGABALIN 75 MG CAP PO ×2 (08:36→20:38)
[2018-09-13] MEDS: PANTOPRAZOLE (EC) 40 MG TAB PO (08:44)
[2018-09-13] MEDS: HYDROCHLOROTHIAZIDE 12.5 MG CAP PO (08:45)
[2018-09-13] MEDS: LOPERAMIDE 2 MG CAP PO (08:54)
[2018-09-13] MEDS: DAPTOMYCIN 500 MG in SOD CHLORIDE 0.9% 100 ML IVPB (17:17)
[2018-09-13] MEDS: INSULIN GLARGINE [LANTus] (100 UNITS/ML) SYG SC (20:37)
[2018-09-13] MEDS: DIVALPROEX (EC) 500 MG TAB PO (20:38)
[2018-09-14 07:08] LABS: ANION GAP 10 (5-13); BLOOD UREA NITROGEN 21 mg/dl (7-20); CARBON DIOXIDE 26 mmol/L (21-31); CHLORIDE 106 mmol/L (97-110); CREATININE 1.29 mg/dl (0.44-1.00); Estimated GFR 43 mL/min (>60); GLUCOSE 127 mg/dl (70-220); POTASSIUM 4.4 mmol/L (3.5-5.1); SODIUM 142 mmol/L (135-144)
[2018-09-14] MEDS: INSULIN ASPART [NOVOLOG] 3 ML PEN SC ×7 (08:00→21:00)
[2018-09-14] MEDS: metFORMIN 500 MG TAB PO ×2 (08:23→17:09)
[2018-09-14] MEDS: ENOXAPARIN 30 MG/0.3 ML SYG SC (08:23)
[2018-09-14] MEDS: BUPROPION (XL) 150 MG TAB PO (08:24)
[2018-09-14] MEDS: LINAGLIPTIN 5 MG TABLET PO (08:25)
[2018-09-14] MEDS: HYDROCHLOROTHIAZIDE 12.5 MG CAP PO (08:25)
[2018-09-14] MEDS: PREGABALIN 75 MG CAP PO ×2 (08:26→21:14)
[2018-09-14] MEDS: DOCUSATE SODIUM 100 MG CAP PO ×2 (08:27→21:00)
[2018-09-14] MEDS: MELOXICAM 15 MG TAB PO (08:27)
[2018-09-14] MEDS: PANTOPRAZOLE (EC) 40 MG TAB PO (08:27)
[2018-09-14] MEDS: CEFEPIME 1GM/50 ML (PMX) 50 ML IVPB ×2 (08:27→21:14)
[2018-09-14] MEDS: FLUTICASONE 0.05% 16 GM NAS SPRAY NASAL ×2 (09:00→21:00)
[2018-09-14] MEDS: LOPERAMIDE 2 MG CAP PO (09:37)
[2018-09-14] MEDS: DEXTROSE 50% 50 ML SYRINGE IV (15:58)
[2018-09-14] MEDS: SOD CHLORIDE 0.45% 1,000 ML IV (17:09)
[2018-09-14] MEDS: DAPTOMYCIN 500 MG in SOD CHLORIDE 0.9% 100 ML IVPB (17:09)
[2018-09-14] MEDS: DIVALPROEX (EC) 500 MG TAB PO (21:14)
[2018-09-14] MEDS: INSULIN GLARGINE [LANTus] (100 UNITS/ML) SYG SC (21:16)
[2018-09-15 05:48] LABS: ANION GAP 13 (5-13); BLOOD UREA NITROGEN 23 mg/dl (7-20); CALCIUM 9.3 mg/dl (8.4-10.2); CARBON DIOXIDE 24 mmol/L (21-31); CHLORIDE 107 mmol/L (97-110); CREATININE 1.18 mg/dl (0.44-1.00); Estimated GFR 48 mL/min (>60); GLUCOSE 140 mg/dl (70-220); POTASSIUM 4.5 mmol/L (3.5-5.1); SODIUM 144 mmol/L (135-144)
[2018-09-15] MEDS: INSULIN ASPART [NOVOLOG] 3 ML PEN SC ×7 (08:16→20:05)
[2018-09-15] MEDS: ENOXAPARIN 30 MG/0.3 ML SYG SC (08:20)
[2018-09-15] MEDS: CEFEPIME 1GM/50 ML (PMX) 50 ML IVPB ×2 (08:20→23:04)
[2018-09-15] MEDS: MELOXICAM 15 MG TAB PO (08:21)
[2018-09-15] MEDS: FLUTICASONE 0.05% 16 GM NAS SPRAY NASAL ×2 (08:21→20:11)
[2018-09-15] MEDS: metFORMIN 500 MG TAB PO ×2 (08:21→17:13)
[2018-09-15] MEDS: BUPROPION (XL) 150 MG TAB PO (08:21)
[2018-09-15] MEDS: PANTOPRAZOLE (EC) 40 MG TAB PO (08:21)
[2018-09-15] MEDS: PREGABALIN 75 MG CAP PO ×2 (08:23→20:04)
[2018-09-15] MEDS: LINAGLIPTIN 5 MG TABLET PO (08:23)
[2018-09-15] MEDS: HYDROCHLOROTHIAZIDE 12.5 MG CAP PO (08:24)
[2018-09-15] MEDS: DOCUSATE SODIUM 100 MG CAP PO ×2 (08:24→20:10)
[2018-09-15] MEDS: DEXTROSE 5%-0.45% NACL 1,000 ML IV (11:09)
[2018-09-15] MEDS ORDERED: LIDOCAINE 1% (MPF) 5 ML VIAL SC (14:30)
[2018-09-15] MEDS ORDERED: PROPOFOL 20 ML (16:35)
[2018-09-15] MEDS ORDERED: LIDOCAINE 2% (SDV) 5 ML INJ (16:35)
[2018-09-15] MEDS ORDERED: BUPIVACAINE 0.5% (SDV) 30 ML INJ (17:00)
[2018-09-15] MEDS ORDERED: ONDANSETRON 4 MG INJ IV (17:30)
[2018-09-15] MEDS ORDERED: FENTAnyl 50 MCG/ML VIAL IV ×3 (17:30)
[2018-09-15] MEDS ORDERED: OXYCODONE/ACETAMINOPHEN (5/325) TAB PO ×2 (17:30)
[2018-09-15] MEDS ORDERED: MEPERIDINE 25 MG INJ IV (17:30)
[2018-09-15] MEDS ORDERED: LABETALOL HCL 20MG INJ IV (17:30)
[2018-09-15] MEDS ORDERED: DIPHENHYDRAMINE 50 MG INJ IV (17:30)
[2018-09-15] MEDS ORDERED: METOCLOPRAMIDE 10 MG INJ IV (17:30)
[2018-09-15] MEDS ORDERED: HYDROmorphONE 1 MG/5 ML IV SYRINGE IV ×3 (17:30)
[2018-09-15] MEDS ORDERED: MIDAZOLAM 1 MG/ML 2 ML INJ IV (17:30)
[2018-09-15] MEDS ORDERED: EPHEDrine SULFATE 50 MG/5 ML SYG IV (17:30)
[2018-09-15] MEDS: hydrALAzine 20 MG INJ IV (18:04)
[2018-09-15] MEDS: SOD CHLORIDE 0.45% 1,000 ML IV (20:03)
[2018-09-15] MEDS: DAPTOMYCIN 500 MG in SOD CHLORIDE 0.9% 100 ML IVPB (20:03)
[2018-09-15] MEDS: DIVALPROEX (EC) 500 MG TAB PO (20:04)
[2018-09-15] MEDS: INSULIN GLARGINE [LANTus] (100 UNITS/ML) SYG SC (20:04)
[2018-09-15] MEDS: HYDROCODONE/APAP (5/325) TAB PO (22:46)
[2018-09-16] MEDS: ACCU-CHEK XX (01:14)
[2018-09-16] MEDS ORDERED: ACCU-CHEK XX (02:00)
[2018-09-16 06:22] LABS: ADD MAN DIFF? NO
[2018-09-16 06:25] LABS: BASOPHILS % 0.5 % (0.0-2.0); EOSINOPHILS # 0.1 10^3/ul (0.0-0.5); EOSINOPHILS % 1.1 % (0.0-7.0); HEMATOCRIT 28.7 % (37.0-47.0); LYMPHOCYTES % 33.2 % (15.0-51.0); MEAN CORPUSCULAR HEMOGLOBIN 28.2 pg (29.0-33.0); MEAN CORPUSCULAR HGB CONC 31.4 g/dl (32.0-37.0); MEAN PLATELET VOLUME 10.1 fl (7.4-10.4); MONOCYTE # 0.6 10^3/ul (0.3-0.9); MONOCYTES % 9.6 % (0.0-11.0); NEUTROPHIL # 3.2 10^3/ul (1.6-7.5); NEUTROPHILS % 51.8 % (39.0-77.0); PLATELET COUNT 222 10^3/UL (140-415); RED BLOOD COUNT 3.19 10^6/ul (4.20-5.40); RED CELL DISTRIBUTION WIDTH 14.6 % (11.5-14.5)
[2018-09-16 06:25] LABS: WHITE BLOOD COUNT 6.1 10^3/ul (4.8-10.8)
[2018-09-16 07:04] LABS: ANION GAP 12 (5-13); BLOOD UREA NITROGEN 25 mg/dl (7-20); CALCIUM 8.7 mg/dl (8.4-10.2); CARBON DIOXIDE 23 mmol/L (21-31); CHLORIDE 106 mmol/L (97-110); CREATININE 1.27 mg/dl (0.44-1.00); Estimated GFR 44 mL/min (>60); GLUCOSE 198 mg/dl (70-220); POTASSIUM 4.3 mmol/L (3.5-5.1); SODIUM 141 mmol/L (135-144)
[2018-09-16] MEDS: INSULIN ASPART [NOVOLOG] 3 ML PEN SC ×7 (09:09→20:51)
[2018-09-16] MEDS: ENOXAPARIN 30 MG/0.3 ML SYG SC (09:11)
[2018-09-16] MEDS: DOCUSATE SODIUM 100 MG CAP PO ×2 (09:12→20:51)
[2018-09-16] MEDS: BUPROPION (XL) 150 MG TAB PO (09:12)
[2018-09-16] MEDS: HYDROCHLOROTHIAZIDE 12.5 MG CAP PO (09:13)
[2018-09-16] MEDS: PREGABALIN 75 MG CAP PO ×2 (09:18→20:42)
[2018-09-16] MEDS: MELOXICAM 15 MG TAB PO (09:18)
[2018-09-16] MEDS: CEFEPIME 1GM/50 ML (PMX) 50 ML IVPB ×2 (09:19→20:41)
[2018-09-16] MEDS: metFORMIN 500 MG TAB PO ×2 (09:22→18:01)
[2018-09-16] MEDS: PANTOPRAZOLE (EC) 40 MG TAB PO (09:22)
[2018-09-16] MEDS: LINAGLIPTIN 5 MG TABLET PO (09:22)
[2018-09-16] MEDS: FLUTICASONE 0.05% 16 GM NAS SPRAY NASAL ×2 (09:23→20:51)
[2018-09-16] MEDS: SOD CHLORIDE 0.45% 1,000 ML IV ×2 (14:35→22:24)
[2018-09-16] MEDS: DAPTOMYCIN 500 MG in SOD CHLORIDE 0.9% 100 ML IVPB (17:56)
[2018-09-16] MEDS: INSULIN GLARGINE [LANTus] (100 UNITS/ML) SYG SC (20:41)
[2018-09-16] MEDS: DIVALPROEX (EC) 500 MG TAB PO (20:42)
[2018-09-17] MEDS: ACCU-CHEK XX (03:00)
[2018-09-17 05:57] LABS: ADD MAN DIFF? NO
[2018-09-17 06:00] LABS: WHITE BLOOD COUNT 6.3 10^3/ul (4.8-10.8)
[2018-09-17 06:00] LABS: BASOPHILS % 0.5 % (0.0-2.0); EOSINOPHILS # 0.1 10^3/ul (0.0-0.5); EOSINOPHILS % 1.4 % (0.0-7.0); HEMOGLOBIN 9.1 g/dl (12.0-16.0); LYMPHOCYTES # 2.6 10^3/ul (0.8-2.9); LYMPHOCYTES % 41.1 % (15.0-51.0); MEAN CORPUSCULAR HEMOGLOBIN 28.5 pg (29.0-33.0); MEAN CORPUSCULAR HGB CONC 31.4 g/dl (32.0-37.0); MEAN CORPUSCULAR VOLUME 90.9 fl (82.0-101.0); MEAN PLATELET VOLUME 10.4 fl (7.4-10.4); MONOCYTE # 0.6 10^3/ul (0.3-0.9); MONOCYTES % 10.1 % (0.0-11.0); NEUTROPHIL # 2.7 10^3/ul (1.6-7.5); NEUTROPHILS % 43.3 % (39.0-77.0); PLATELET COUNT 216 10^3/UL (140-415); RED BLOOD COUNT 3.19 10^6/ul (4.20-5.40); RED CELL DISTRIBUTION WIDTH 14.9 % (11.5-14.5)
[2018-09-17 07:12] LABS: ANION GAP 13 (5-13); BLOOD UREA NITROGEN 27 mg/dl (7-20); CALCIUM 9.1 mg/dl (8.4-10.2); CARBON DIOXIDE 23 mmol/L (21-31); CHLORIDE 107 mmol/L (97-110); CREATININE 1.38 mg/dl (0.44-1.00); Estimated GFR 40 mL/min (>60); GLUCOSE 154 mg/dl (70-220); POTASSIUM 4.2 mmol/L (3.5-5.1); SODIUM 143 mmol/L (135-144)
[2018-09-17] MEDS: INSULIN ASPART [NOVOLOG] 3 ML PEN SC ×7 (08:00→20:22)
[2018-09-17] MEDS: MELOXICAM 15 MG TAB PO (08:37)
[2018-09-17] MEDS: BUPROPION (XL) 150 MG TAB PO (08:37)
[2018-09-17] MEDS: PREGABALIN 75 MG CAP PO ×2 (08:38→20:10)
[2018-09-17] MEDS: PANTOPRAZOLE (EC) 40 MG TAB PO (08:38)
[2018-09-17] MEDS: HYDROCHLOROTHIAZIDE 12.5 MG CAP PO (08:38)
[2018-09-17] MEDS: LINAGLIPTIN 5 MG TABLET PO (08:38)
[2018-09-17] MEDS: CEFEPIME 1GM/50 ML (PMX) 50 ML IVPB ×2 (08:39→20:10)
[2018-09-17] MEDS: metFORMIN 500 MG TAB PO ×2 (08:43→17:50)
[2018-09-17] MEDS: ENOXAPARIN 30 MG/0.3 ML SYG SC (08:56)
[2018-09-17] MEDS: FLUTICASONE 0.05% 16 GM NAS SPRAY NASAL ×2 (08:56→20:22)
[2018-09-17] MEDS: DOCUSATE SODIUM 100 MG CAP PO ×2 (08:56→20:22)
[2018-09-17] MEDS: DAPTOMYCIN 500 MG in SOD CHLORIDE 0.9% 100 ML IVPB (17:44)
[2018-09-17] MEDS: DIVALPROEX (EC) 500 MG TAB PO (20:10)
[2018-09-17] MEDS: INSULIN GLARGINE [LANTus] (100 UNITS/ML) SYG SC (20:15)
[2018-09-17] MEDS: hydrALAzine 20 MG INJ IV (23:13)
[2018-09-17] MEDS: SOD CHLORIDE 0.45% 1,000 ML IV (23:53)
[2018-09-18] MEDS: ACCU-CHEK XX (02:00)
[2018-09-18] MEDS: INSULIN ASPART [NOVOLOG] 3 ML PEN SC ×6 (08:00→18:05)
[2018-09-18] MEDS: CEFEPIME 1GM/50 ML (PMX) 50 ML IVPB (08:51)
[2018-09-18] MEDS: PREGABALIN 75 MG CAP PO (08:51)
[2018-09-18] MEDS: metFORMIN 500 MG TAB PO ×2 (08:51→18:05)
[2018-09-18] MEDS: MELOXICAM 15 MG TAB PO (08:52)
[2018-09-18] MEDS: BUPROPION (XL) 150 MG TAB PO (08:52)
[2018-09-18] MEDS: LINAGLIPTIN 5 MG TABLET PO (08:52)
[2018-09-18] MEDS: HYDROCHLOROTHIAZIDE 12.5 MG CAP PO (08:52)
[2018-09-18] MEDS: PANTOPRAZOLE (EC) 40 MG TAB PO (08:52)
[2018-09-18] MEDS: DOCUSATE SODIUM 100 MG CAP PO (08:53)
[2018-09-18] MEDS: FLUTICASONE 0.05% 16 GM NAS SPRAY NASAL (08:54)
[2018-09-18] MEDS: ENOXAPARIN 30 MG/0.3 ML SYG SC (08:57)
[2018-09-18] MEDS: CEFTRIAXONE 1 GM/50 ML (PMX) 50 ML IVPB (14:13)
[2018-09-18] MEDS: DAPTOMYCIN 500 MG in SOD CHLORIDE 0.9% 100 ML IVPB (16:33)
== END 2018-09-18 18:25 | disposition home health service (06) | DRG 579 ==
LOC: E/R 12:18 → PP2 14:55
PROC: 0Y9N0ZZ Drainage of Left Foot, Open Approach (ICD-10-PCS; principal; 2018-09-15 16:30)
PROC: 0QBR0ZX Excision of Left Toe Phalanx, Open Approach, Diagnostic (ICD-10-PCS; 2018-09-15 16:30)
PROC: 02HV33Z Insertion of Infusion Device into Superior Vena Cava, Percutaneous Approach (ICD-10-PCS; 2018-09-15 16:40)
DX: L02.612 Cutaneous abscess of left foot (principal); N17.0 Acute kidney failure with tubular necrosis; M86.8X7 Other osteomyelitis, ankle and foot; E11.69 Type 2 diabetes mellitus with other specified complication; E11.628 Type 2 diabetes mellitus with other skin complications; L03.032 Cellulitis of left toe; E11.65 Type 2 diabetes mellitus with hyperglycemia; E11.42 Type 2 diabetes mellitus with diabetic polyneuropathy; E11.21 Type 2 diabetes mellitus with diabetic nephropathy; E11.22 Type 2 diabetes mellitus with diabetic chronic kidney disease; E78.5 Hyperlipidemia, unspecified; E66.9 Obesity, unspecified; F31.9 Bipolar disorder, unspecified; I12.9 Hypertensive chronic kidney disease with stage 1 through stage 4 chronic kidney disease, or unspecified chronic kidney disease; N18.3 Chronic kidney disease, stage 3 (moderate); Z68.34 Body mass index [BMI] 34.0-34.9, adult; Z87.891 Personal history of nicotine dependence; Z79.1 Long term (current) use of non-steroidal anti-inflammatories (NSAID); Z79.4 Long term (current) use of insulin
CPT/HCPCS: 36415; 36569; 71045; 73630-LT; 73721; 76775; 76937; 80048; 80053; 82550; 82962; 83036; 84484; 84703; 85025; 85610; 85730; 87040; 87070; 87102; 87116; 93005; 93971; 99285-25